=== PATIENT | male | born 1945 | race Caucasian/White ===

== ENCOUNTER 2017-03-16 06:01 | Emergency (ER) | payer BC, OTHER ==
[~2017-03-16] VITALS: Ht 175.3 cm; Wt 77.4 kg
[~2017-03-16 06:01] MED LIST: ASPI-496; LOVA20TA68
[2017-03-16] MEDS ORDERED: KETOROLAC 30 MG/1 ML IVPush ONE (06:30)
[2017-03-16] MEDS ORDERED: ONDANSETRON 2MG/ML, 2ML IVPush ONE (06:30)
[2017-03-16] MEDS ORDERED: SODIUM CHLORIDE FLUSH 10ML SYR IVF ONE (06:30)
[2017-03-16] MEDS ORDERED: KETOROLAC 30 MG/1 ML ONE (06:31)
[2017-03-16] MEDS ORDERED: ONDANSETRON 2MG/ML, 2ML ONE (06:32)
[2017-03-16 06:47] LABS: ASPARTATE AMINO TRANSFERASE 27 U/L (15-37); BLOOD UREA NITROGEN 24 mg/dL (7-18)
[2017-03-16 08:00] VITALS: BP 128/64
== END 2017-03-16 08:51 | disposition home or self-care (01) ==
LOC: ED 06:28
DX: N20.2 Calculus of kidney with calculus of ureter (principal); E78.5 Hyperlipidemia, unspecified; Z87.442 Personal history of urinary calculi
CPT/HCPCS: 36415; 74176; 80053; 81001; 83690; 85025; 96374; 96375; 99285; J1885; J2405

== ENCOUNTER 2017-03-19 14:35 | Inpatient (IN) | payer BC, MEDICARE ==
[~2017-03-19] VITALS: Ht 175.3 cm; Wt 79.7 kg
[~2017-03-19 14:35] MED LIST changes: -ASPI-496; +ASPI-496 PO; -LOVA20TA68; +LOVA20TA68 PO
[2017-03-19] MEDS ORDERED: KETOROLAC 30 MG/1 ML IVPush ONE (15:00)
[2017-03-19] MEDS ORDERED: SODIUM CHLORIDE FLUSH 10ML SYR IVF ONE (15:00)
[2017-03-19] MEDS ORDERED: SODIUM CHLORIDE 0.9% 1,000ML IVBOLUS ONE (15:00)
[2017-03-19] MEDS ORDERED: MORPHINE SULFATE 4 MG/ML, 1ML IVPush PRN (15:00)
[2017-03-19] MEDS ORDERED: ONDANSETRON 2MG/ML, 2ML IVPush ONE (15:00)
[2017-03-19] MEDS ORDERED: METHYLNALTREXONE 12 MG/0.6 ML SQ ONE (15:00)
[2017-03-19] MEDS ORDERED: KETOROLAC 30 MG/1 ML ONE (15:09)
[2017-03-19] MEDS ORDERED: ONDANSETRON 2MG/ML, 2ML ONE (15:09)
[2017-03-19] MEDS ORDERED: MORPHINE SULFATE 4 MG/ML, 1ML ONE (15:09)
[2017-03-19 15:24] LABS: ASPARTATE AMINO TRANSFERASE 19 U/L (15-37); BLOOD UREA NITROGEN 22 mg/dL (7-18)
[2017-03-19] MEDS ORDERED: NIAC500T85 PO (16:32)
[2017-03-19] MEDS ORDERED: HYDR-3240 PO ×2 (17:54)
[2017-03-19] MEDS ORDERED: ONDA4TAB10 PO (17:54)
[2017-03-19] MEDS ORDERED: TAMS-11 PO (17:54)
[2017-03-19] MEDS ORDERED: ONDANSETRON 2MG/ML, 2ML IVPush PRN (20:30)
[2017-03-19] MEDS ORDERED: morphine SULFATE 10 MG/ML, 1ML IVPush PRN (20:30)
[2017-03-19] MEDS: HEPARIN 5,000 UNITS/ML, 1ML SQ SCH (21:14)
[2017-03-19] MEDS: LOVASTATIN 40 MG TABLET PO SCH (21:14)
[2017-03-19] MEDS: SODIUM CHLORIDE 0.9% 1,000 ML IV SCH (21:14)
[2017-03-19] MEDS: BISACODYL 10 MG SUPP PR SCH (21:14)
[2017-03-19 21:33] VITALS: BP 145/77
[2017-03-20 01:49] VITALS: BP 119/68
[2017-03-20] MEDS: HEPARIN 5,000 UNITS/ML, 1ML SQ SCH ×3 (04:21→20:56)
[2017-03-20] MEDS: SODIUM CHLORIDE 0.9% 1,000 ML IV SCH ×3 (04:21→22:03)
[2017-03-20 06:32] LABS: BLOOD UREA NITROGEN 27 mg/dL (7-18)
[2017-03-20 06:36] LABS: ASPARTATE AMINO TRANSFERASE 17 U/L (15-37)
[2017-03-20 06:52] VITALS: BP 132/72
[2017-03-20] MEDS: NIACIN 500 MG TABLET.ER PO SCH (08:28)
[2017-03-20] MEDS: TAMSULOSIN 0.4 MG CAP.ER.24H PO SCH (08:28)
[2017-03-20] MEDS: BISACODYL 10 MG SUPP PR SCH ×2 (08:28→20:55)
[2017-03-20 13:12] VITALS: BP 136/72
[2017-03-20] MEDS: ACETAMINOPHEN 325 MG TABLET PO PRN (13:25)
[2017-03-20 19:57] VITALS: BP 152/82
[2017-03-20] MEDS: LOVASTATIN 40 MG TABLET PO SCH (20:55)
[2017-03-21 01:10] VITALS: BP 155/73
[2017-03-21] MEDS: HEPARIN 5,000 UNITS/ML, 1ML SQ SCH ×3 (04:52→21:47)
[2017-03-21] MEDS: SODIUM CHLORIDE 0.9% 1,000 ML IV SCH ×2 (04:54→14:30)
[2017-03-21 05:59] LABS: BLOOD UREA NITROGEN 18 mg/dL (7-18)
[2017-03-21 06:02] LABS: ASPARTATE AMINO TRANSFERASE 36 U/L (15-37)
[2017-03-21 07:25] VITALS: BP 147/74
[2017-03-21] MEDS: TAMSULOSIN 0.4 MG CAP.ER.24H PO SCH (08:24)
[2017-03-21] MEDS: NIACIN 500 MG TABLET.ER PO SCH (08:24)
[2017-03-21] MEDS: BISACODYL 10 MG SUPP PR SCH ×2 (09:00→21:00)
[2017-03-21] MEDS ORDERED: ONDANSETRON 2MG/ML, 2ML ONE (10:13)
[2017-03-21] MEDS ORDERED: PROPOFOL 10 MG/ML, 20ML ONE (10:13)
[2017-03-21] MEDS ORDERED: CEFAZOLIN 1,000 MG ONE (10:13)
[2017-03-21 12:26] VITALS: BP 129/79
[2017-03-21] MEDS ORDERED: FENTANYL PF 100 MCG/2ML ONE (15:06)
[2017-03-21] MEDS ORDERED: OXYcodone 5 MG/5 ML ORAL.SOL UDC PO PRN (16:00)
[2017-03-21] MEDS ORDERED: PROMETHAZINE 25 MG/ML, 1ML IV PRN (16:00)
[2017-03-21] MEDS ORDERED: ACETAMINOPHEN 325 MG TABLET PO PRN (16:00)
[2017-03-21] MEDS ORDERED: KETOROLAC 30 MG/1 ML IV PRN (16:00)
[2017-03-21] MEDS ORDERED: OMNIPAQUE 350 MG/ML, 50 ML BOTTLE ONE (16:17)
[2017-03-21] MEDS: ACETAMINOPHEN 325 MG TABLET PO PRN ×2 (18:30→22:27)
[2017-03-21 20:00] VITALS: BP 152/83
[2017-03-21] MEDS: LOVASTATIN 40 MG TABLET PO SCH (21:47)
[2017-03-22 02:00] VITALS: BP 138/80
[2017-03-22] MEDS: HEPARIN 5,000 UNITS/ML, 1ML SQ SCH (04:30)
[2017-03-22 06:01] LABS: BLOOD UREA NITROGEN 14 mg/dL (7-18)
[2017-03-22 07:17] VITALS: BP 155/70
[2017-03-22] MEDS: TAMSULOSIN 0.4 MG CAP.ER.24H PO SCH (09:35)
[2017-03-22] MEDS: NIACIN 500 MG TABLET.ER PO SCH (09:36)
[2017-03-22] MEDS: BISACODYL 10 MG SUPP PR SCH (09:36)
== END 2017-03-22 11:10 | disposition home or self-care (01) | DRG 669 ==
LOC: ED 15:47 → EDIP 16:40 → 3NE 18:09 → DCLOUNGE 03-22 10:45
PROVIDERS: ADMIT Hospitalist
PROC: 0TC78ZZ Extirpation of Matter from Left Ureter, Via Natural or Artificial Opening Endoscopic (ICD-10-PCS; principal; 2017-03-21 15:00)
DX: N13.2 Hydronephrosis with renal and ureteral calculous obstruction (principal); E87.1 Hypo-osmolality and hyponatremia; K56.7 Ileus, unspecified; N17.9 Acute kidney failure, unspecified; E78.5 Hyperlipidemia, unspecified; D72.829 Elevated white blood cell count, unspecified; Z81.8 Family history of other mental and behavioral disorders; Z82.49 Family history of ischemic heart disease and other diseases of the circulatory system
CPT/HCPCS: 36415; 71010; 74000; 74176; 74420; 76770; 80048; 80053; 81003; 82360; 83690; 85025; 85610; 88300; 93005; 96361; 96372; 96374; 96375; J0690; J1644; J1885; J2405; J2704; J3010; Q9967; J2270; J7030